=== PATIENT | male | born 1960 | race Caucasian/White ===

== ENCOUNTER 2016-09-03 08:40 | Day surgery (SDC) | payer MEDICARE, OTHER ==
[~2016-09-03] VITALS: Ht 182.9 cm; Wt 89.5 kg
[~2016-09-03 08:40] MED LIST: 0.9% SODIUM CHLORIDE 10 ML SYRINGE IVP PRN; ATOR10TA84 PO; BACL10TA PO; BUPR100SR PO; CALCIUM PO; CYAN250010 PO; DICL75TA5 PO; FOLI1 PO; LATA2.5D2 OU; METH2.5T6 PO; PREG50 PO; TIMO.5OS OU; TRAM50TA4 PO; TRAZ-147 PO; VENL-193 PO; VITAD1000 PO; VITAMIN B12 IM
[2016-09-03] MEDS ORDERED: 0.9% SODIUM CHLORIDE 10 ML SYRINGE IVP ONE (09:18)
[2016-09-03 09:39] LABS: ANION GAP 10 mmol/L (8-16); CALCIUM, TOTAL 8.7 mg/dL (8.8-10.5); CARBON DIOXIDE 29 mmol/L (22-29); CHLORIDE 107 mmol/L (98-107); CREATININE 0.87 mg/dL (0.60-1.30); GLOMERULAR FILTR. RATE CALC > 60 mL/min (>60); POTASSIUM 4.1 mmol/L (3.5-5.1); SODIUM SERUM 146 mmol/L (136-145); UREA NITROGEN, BLOOD 19 mg/dL (7-18)
[2016-09-03] MEDS ORDERED: METOPROLOL TARTRATE 50 MG TABLET PO ONE (10:00)
[2016-09-03] MEDS ORDERED: IOVERSOL 350 MG/ML 150 ML VIAL ONE (10:09)
[2016-09-03] MEDS ORDERED: SODIUM CHLORIDE 0.9% 100 ML ONE (10:10)
[2016-09-03] MEDS ORDERED: METOPROLOL TARTRATE 5 MG/5 ML VIAL ONE (11:14)
[2016-09-03] MEDS ORDERED: NITROGLYCERIN 400 MCG/SUBLINGUAL SPRAY 4.9 GM BOTTLE SL ONE (11:14)
== END 2016-09-03 12:10 | disposition home or self-care (01) ==
LOC: SDS 08:40 → EDSTATUS 11:00 → SDS 12:10
PROVIDERS: ATTEND Internal Medicine Cardiovascular Disease
DX: R07.9 Chest pain, unspecified (principal); I27.2 Other secondary pulmonary hypertension; M06.9 Rheumatoid arthritis, unspecified; M79.7 Fibromyalgia; D51.0 Vitamin B12 deficiency anemia due to intrinsic factor deficiency; M54.9 Dorsalgia, unspecified; F32.9 Major depressive disorder, single episode, unspecified; F41.9 Anxiety disorder, unspecified; Z72.89 Other problems related to lifestyle; Z98.890 Other specified postprocedural states
CPT/HCPCS: 36415; 75574; 80048; J7050; Q9967; 93005; J3490

== ENCOUNTER → 2016-09-13 | Outpatient (CLI) | payer MEDICARE, OTHER ==
[~2016-09-13] MED LIST changes: -0.9% SODIUM CHLORIDE 10 ML SYRINGE IVP PRN; -VENL-193 PO; +VENL75 PO
[2016-09-13 10:57] LABS: ANION GAP 6 mmol/L (8-16); CALCIUM, TOTAL 7.9 mg/dL (8.8-10.5); CARBON DIOXIDE 30 mmol/L (22-29); CHLORIDE 107 mmol/L (98-107); GLOMERULAR FILTR. RATE CALC > 60 mL/min (>60); SODIUM SERUM 143 mmol/L (136-145); UREA NITROGEN, BLOOD 18 mg/dL (7-18)
[2016-09-13 11:16] LABS: B-TYPE NATRIURETIC PEPTIDE 7 pg/mL (0-100)
== END | disposition home or self-care (01) ==
LOC: LABPV 07:31
PROVIDERS: ATTEND Internal Medicine Cardiovascular Disease
DX: I11.0 Hypertensive heart disease with heart failure (principal); I50.9 Heart failure, unspecified